=== PATIENT | male | born 1960 | race Hispanic/Latino ===

== ENCOUNTER 2019-05-29 09:45 | Inpatient (IN) | payer OTHER ==
[~2019-05-29] VITALS: Ht 167.6 cm; Wt 65.3 kg
[~2019-05-29 09:45] MED LIST: GABAPENTIN100 MG PO; GLUCOPHAGE850 MG PO; LEVOTHYROXINE50 MCG PO; MELOXICAM7.5 MG PO; PANTOPRAZOLE SO40 MG PO; SUPER B COMPLE1 EACH PO; VITAMIN D35000 UNI1 PO
--- OUTSIDE RECORDS SUMMARY | 2019-05-29 09:47 | XMS REPORT ---
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 Allergies, Adverse Reactions, Alerts This patient has no known allergies or adverse reactions. Medications This patient has no known medications. Encounters Start Date/Time End Date/Time Encounter Type Admission Type Attending [facility] Care Facility Care Department Encounter ID 2017-11-21 13:23:01 2017-11-21 13:23:01 Out[facility] [id number] 2017-10-31 06:14:00 2017-10-31 06:14:00 Outpatient [facility] [id number] 2017-10-31 00:00:00 2017-10-31 00:00:00 Outpatient [facility] [id number] 2017-10-24 09:31:26 2017-10-24 09:31:26 Outpatient [facility] [id number] 2017-10-24 00:00:00 2017-10-24 00:00:00 Outpatient [facility] [id number] 2017-10-16 15:11:10 2017-10-16 15:11:10 Outpatient [facility] [id number] 2017-10-14 12:37:33 2017-10-14 12:37:33 Outpatient [facility] [id number] 2017-10-10 08:11:27 2017-10-10 08:11:27 Outpatient [facility] [id number] 2017-10-06 07:59:33 2017-10-06 07:59:33 Outpatient [facility] [id number] 2017-09-30 09:36:24 2017-09-30 09:36:24 Outpatient [facility] [id number] 2017-09-10 09:41:45 2017-09-10 09:41:45 Outpatient [facility] [id number] 2017-09-10 08:16:43 2017-09-10 08:16:43 Outpatient [facility] [id number] 2017-08-26 10:03:30 2017-08-26 10:03:30 Outpatient [facility] [id number] 2017-08-22 09:12:12 2017-08-22 09:12:12 Outpatient [facility] [id number] 2017-08-22 07:48:32 2017-08-22 07:48:32 Outpatient [facility] [id number]
[2019-05-29] MEDS ORDERED: SODIUM CHLORIDE 0.9% 1000ML 1,000 ML IV STA (10:06)
[2019-05-29 10:34] LABS: BASOPHILS % 0.8 % (0.0-1.0); EOSINOPHILS # (AUTO) 0.1 (0.0-0.4); EOSINOPHILS % 2.1 % (0.0-6.0); HEMATOCRIT 46.3 % (38.2-49.6); HEMOGLOBIN 15.7 g/dL (14.0-18.0); LYMPHOCYTES # (AUTO) 1.3 (1.0-3.2); LYMPHOCYTES % 25.8 % (18.0-39.1); MEAN CORPUSCULAR HEMOGLOBIN 32.1 pg (28-32); MEAN CORPUSCULAR HGB CONC 33.9 g/dL (31-35); MEAN CORPUSCULAR VOLUME 94.7 fL (81-99); MONOCYTES # (AUTO) 0.4 (0.2-0.8); MONOCYTES % 8.2 % (4.4-11.3); NEUTROPHILS # (AUTO) 3.1 (2.1-6.9); NEUTROPHILS % 62.9 % (38.7-80.0); PLATELET COUNT 179 x10e3/uL (140-360); RED BLOOD COUNT 4.89 x10e6/uL (4.3-5.7); RED CELL DISTRIBUTION WIDTH 12.2 % (11.7-14.4)
[2019-05-29 10:39] LABS: BILIRUBIN,URINE NEGATIVE (NEGATIVE); CLARITY,URINE CLEAR (CLEAR); COLOR,URINE YELLOW (YELLOW); KETONES,URINE NEGATIVE (NEGATIVE); LEUKOCYTE ESTERASE ,URINE NEGATIVE (NEGATIVE); NITRITE,URINE NEGATIVE (NEGATIVE); PROTEIN,URINE DIPSTICK NEGATIVE (NEGATIVE); URINE UROBILINOGEN 0.2 mg/dL (0.2 - 1)
[2019-05-29 10:47] LABS: INR 0.86; PROTHROMBIN TIME 12.2 seconds (11.9-14.5)
[2019-05-29 10:48] LABS: PARTIAL THROMBOPLASTIN TIME 29.3 seconds (23.8-35.5)
[2019-05-29 11:08] LABS: ALANINE AMINOTRANSFERASE 503 IU/L (0-55); ALBUMIN 3.8 g/dL (3.5-5.0); ALBUMIN/GLOBULIN RATIO 1.2 (0.8-2.0); ALKALINE PHOSPHATASE 39 IU/L (40-150); ANION GAP 15.4 mmol/L (8-16); BLOOD UREA NITROGEN 15 mg/dL (7-26); BUN/CREATININE RATIO 22 (6-25); CALCIUM 9.4 mg/dL (8.4-10.2); CARBON DIOXIDE 27 mmol/L (22-29); CHLORIDE 103 mmol/L (98-107); CREATININE, SERUM 0.68 mg/dL (0.72-1.25); EST GLOMERULAR FILTRATION RATE > 60 ML/MIN (60-); GLUCOSE 226 mg/dL (74-118); LIPASE 106 U/L (8-78); POTASSIUM 4.4 mmol/L (3.5-5.1); SODIUM 141 mmol/L (136-145)
[2019-05-29 11:09] LABS: CREATINE KINASE 9347 IU/L (30-200); RBC,URINE 0-5 /HPF (0-5)
[2019-05-29 11:10] LABS: BACTERIA,URINE FEW /HPF; EPITHELIAL CELLS,URINE RARE /LPF
--- NOTE | 2019-05-29 11:27 | Diagnostic Imaging Report ---
Exam: Head CT without contrast History: Weakness Comparison studies: None Technique: Axial images were obtained from the skull base to the vertex. Coronal and sagittal images reconstructed from the axial data. Dose modulation, iterative reconstruction, and/or weight based adjustment of the mA/kV was utilized to reduce the radiation dose to as low as reasonably achievable. Radiation dose: Total DLP: 921 mGy*cm. Estimated effective dose: DLP x 0.015 Intravenous contrast: None Findings: Scalp: No abnormalities. Bones: No fractures, blastic or lytic lesions. Brain sulci: Appropriate for age. Ventricles: Normal in size and configuration. No hydrocephalus. Extra-axial spaces: No masses, no fluid collection. Parenchyma: A punctate dystrophic calcification within the right caudate nucleus, right precuneus gyrus along the right anterior parietal occipital sulcus and right inferomedial temporal lobe are without surrounding edema and are likely sequela of prior infection/inflammation. 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 Sellar/suprasellar region: No abnormalities. Craniocervical junction: Patent foramen magnum. No Chiari one malformation. Incidental findings: Atherosclerotic calcifications in the carotid siphons.. IMPRESSION: 1. No acute intracranial abnormalities. 2. Incidental a few scattered chronic intracranial dystrophic calcifications. Signed by: Dr. Krishna Davis M.D. on 05/29/2019 11:23 AM
--- NOTE | 2019-05-29 11:31 | Diagnostic Imaging Report ---
EXAMINATION: CHEST SINGLE (PORTABLE) INDICATION: Pain. COMPARISON: None FINDINGS: AP view TUBES and LINES: None. LUNGS: Lungs are not well inflated. There are bibasilar atelectasis. There is no evidence of pneumonia or pulmonary edema. PLEURA: No pleural effusion or pneumothorax. HEART AND MEDIASTINUM: The cardiomediastinal silhouette is unremarkable. BONES AND SOFT TISSUES: No acute osseous lesion. Soft tissues are unremarkable. UPPER ABDOMEN: No free air under the diaphragm. IMPRESSION: No acute thoracic abnormality. Signed by: Dr. Erik De La Vega M.D. on 05/29/2019 11:28 AM
[2019-05-29] MEDS ORDERED: ONDANSETRON HCL INJ 2MG/ML 2ML 2 MG/ML VIAL IV PRN (11:45)
[2019-05-29] MEDS ORDERED: DEXTROSE 50% SYRINGE 50 ML IV PRN (12:00)
[2019-05-29] MEDS ORDERED: FAMOTIDINE 20 MG/2 ML VIAL IV SCH (12:00)
[2019-05-29] MEDS: SODIUM CHLORIDE 0.9% 1000ML 1,000 ML IV SCH ×2 (12:05→18:25)
--- NOTE | 2019-05-29 12:10 | NUR ---
RECEIVED REPORT FROM ER. PT DX IS ELEVATED LFTs, MYOSITIS, RHABDOMYOLYSIS. VITAL SIGNS 127/71 HR 70 RR 16 AND O2 SAT 100% ON ROOM AIR. LEFT AC 18G WITH NS RUNNING AT 150/HR. IV SITE IS ASYMPTOMATIC.
[2019-05-29 13:14] LABS: FREE THYROXINE INDEX 2.3825 (1.4-3.8); THYROID STIMULATING HORMONE 2.556 uIU/mL (0.350-4.940)
[2019-05-29 13:38] VITALS: BP 113/56
[2019-05-29 15:09] VITALS: BP 113/56
[2019-05-29 16:00] VITALS: BP 109/57
[2019-05-29] MEDS: INSULIN LISPRO 100 UNIT/1 ML 3ML VIAL SQ SCH ×2 (16:30→19:49)
--- NOTE | 2019-05-29 17:37 | Consultation ---
DATE OF CONSULTATION: 05/29/2019 Nephrology consultation note REASON FOR CONSULTATION: Rhabdomyolysis. REFERRING PHYSICIAN: ER physician. HISTORY OF PRESENT ILLNESS: This is a 59-year-old gentleman with no significant past medical history, who was admitted with some weakness. His CPK level was 9000, for which Nephrology consultation was obtained for further evaluation and management. At the time of my examination, he appeared in no acute distress and denied any nausea, vomiting, chest pain, shortness of breath, cough, phlegm, fever, chills, abdominal pain, diarrhea, urinary problems, skin rash, joint pain, or any focal weakness. He did complain of some generalized weakness and fatigue in the muscle. PAST MEDICAL AND SURGICAL HISTORY: Apparently, he does have some past medical history of hypertension, diabetes mellitus, hypothyroidism, hyperlipidemia, osteoarthritis, and prostate cancer, status post prostate surgery for removal of the prostate. PERSONAL AND SOCIAL HISTORY: No history of alcohol or tobacco. MEDICATIONS: See the medication sheet that was reviewed. PHYSICAL EXAMINATION: VITAL SIGNS: Blood pressure 113/56, respirations 20, heart rate 58, and temperature 96.4. HEENT: Head was atraumatic, normocephalic. Pupils were reactive to light. Mouth; mucous membrane moist. NECK: Supple. CHEST: Revealed fair air entry. HEART: S1 and S2. ABDOMEN: Soft. Bowel sounds are positive. EXTREMITIES: No edema. RN EMERGENCY: He is awake and alert. Cranial nerves are intact. There are no gross motor deficits noted. LABORATORY DATA: His white cell count 4.8, hemoglobin 15.7, hematocrit 46.3, and platelets 179. Chemistry; sodium 141, potassium 4.4, chloride 103, CO2 of 27, BUN 15, creatinine 0.68, glucose 226, and calcium 9.4. AST 221, ALT 506, CK 9347. Albumin 3.8. Urine specific gravity less than 1.005, pH 6.5, 1+ glucose, 1+ blood, negative microscopy. IMPRESSION: 1. Rhabdomyolysis with possible myoglobinuria as evident by elevated CPK and positive blood, but no RBCs in the urine. 2. Serum creatinine is 0.68 with stable electrolytes, metabolic profile, and volume status. PLAN: Strict I's and O's. No nonsteroidal anti-inflammatory drugs, RAFAEL inhibitors, IV dye, and ARB. Check urine myoglobin, CPK in the morning. CBC comprehensive profile in the morning. Continue IV fluids at 150 mL an hour. Further recommendations to follow. Thank you for the consultation. Ally Prescott MD SA/PRIYA /[id number]
--- NOTE | 2019-05-29 18:45 | NUR ---
Received bedside report from dayshift RN. The patient is sitting by the window with his son. The patient is not in distress. The patient was instructed to urinate in the cup for collection. Verbalized understanding. Call light is on the bed, side rails. bed height low, and wheels lock.
[2019-05-29 19:14] VITALS: BP 120/70
[2019-05-29 19:22] LABS: CREATINE KINASE 7553 IU/L (30-200)
[2019-05-29 22:00] VITALS: BP 120/70
[2019-05-30] VITALS (8 sets, daily range): BP systolic 98–123; BP diastolic 56–74
--- NOTE | 2019-05-30 00:54 | History and Physical ---
CHIEF COMPLAINT: Weakness. 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 He was in his usual state until the patient feeling weak for the last few days, working outside. The patient was seen in Dr. David Colmenares's office and sent to the hospital for further treatment. No chest pain. No shortness of breath. No headache, no dizziness. No abdominal pain. No nausea or vomiting. Mild leg cramp. No backache. No burning urination. PAST MEDICAL HISTORY: 1. Diabetes mellitus. 2. Hyperlipidemia. 3. Hypothyroidism. 4. Diabetic neuropathy. 5. History of CA prostate. PAST SURGICAL HISTORY: History of prostate surgery for implant radiation. SOCIAL HISTORY: The patient is . Lives with the family. HABITS: Denies smoking or alcohol use. FAMILY HISTORY: Positive for diabetes. MEDICATIONS: List attached. REVIEW OF SYSTEMS: GENERAL: Denies fatigue or weakness. HEENT: No diplopia. No blurry vision. CARDIOPULMONARY: No chest pain. No shortness of breath. No cough. ALIMENTARY SYSTEM: No nausea. No vomiting. GENITOURINARY SYSTEM: No dysuria. No hematuria. MUSCULOSKELETAL: No joint pain. CENTRAL NERVOUS SYSTEM: No focal weakness. PHYSICAL EXAMINATION: GENERAL: This is a 59-year-old male, who is alert and oriented x3, in no acute distress. VITAL SIGNS: Temperature 98.1, pulse 64, respiratory rate 20, blood pressure 109/57. HEENT: Head is atraumatic and normocephalic. Pupils are bilaterally equal and reactive to light. Extraocular muscles are intact. NECK: Supple. No JVD. No carotid bruits. LUNGS: Clear to auscultation and percussion bilaterally. No added sounds. HEART: S1 and S2. Regular rate and rhythm. No S3, S4, or murmur. ABDOMEN: Soft and nontender. No guarding. No rigidity. EXTREMITIES: No edema. Peripheral pulse +1. HISTORICAL RECORDS ADMINISTRATOR: Grossly nonfocal. LABORATORY AND DIAGNOSTIC DATA: EKG normal sinus rhythm at 68 per minute. Chest x-ray normal. CT of the head normal. Urine is normal. CBS is normal. PT/PTT is normal. Sodium 144, potassium 4.4, BUN and creatinine normal. Carbon dioxide 27, glucose 226, AST 221, ALT 503. CK 9347. CK-MB 521. Troponin less than 0.001. Lipase 106. ASSESSMENT: 1. Acute rhabdomyolysis. 2. Diabetes mellitus. 3. Hypothyroidism. 4. Weakness secondary to #1. 5. History of CA prostate. PLAN: IV fluid, normal saline at 150 mL per hour. Renal consult with Dr. Sands. Sliding scale, blood sugar a.c. and h.s. Lab in the morning. Hold all home medicine except thyroid medicine. CBC, CMP, CPK, lipase in the morning. Leo Colmenares MD DP/MODL /[id number]
[2019-05-30] MEDS: SODIUM CHLORIDE 0.9% 1000ML 1,000 ML IV SCH ×4 (01:05→20:23)
[2019-05-30 06:18] LABS: BASOPHILS % 0.4 % (0.0-1.0); EOSINOPHILS # (AUTO) 0.2 (0.0-0.4); EOSINOPHILS % 3.4 % (0.0-6.0); HEMATOCRIT 40.4 % (38.2-49.6); HEMOGLOBIN 13.4 g/dL (14.0-18.0); LYMPHOCYTES # (AUTO) 1.4 (1.0-3.2); MEAN CORPUSCULAR HEMOGLOBIN 31.6 pg (28-32); MEAN CORPUSCULAR HGB CONC 33.2 g/dL (31-35); MEAN CORPUSCULAR VOLUME 95.3 fL (81-99); MONOCYTES # (AUTO) 0.4 (0.2-0.8); PLATELET COUNT 152 x10e3/uL (140-360); RED BLOOD COUNT 4.24 x10e6/uL (4.3-5.7); RED CELL DISTRIBUTION WIDTH 12.3 % (11.7-14.4)
[2019-05-30 06:43] LABS: ALANINE AMINOTRANSFERASE 368 IU/L (0-55); ALBUMIN 2.9 g/dL (3.5-5.0); ALBUMIN/GLOBULIN RATIO 1.3 (0.8-2.0); ALKALINE PHOSPHATASE 24 IU/L (40-150); ANION GAP 10.1 mmol/L (8-16); BLOOD UREA NITROGEN 13 mg/dL (7-26); BUN/CREATININE RATIO 23 (6-25); CALCIUM 8.7 mg/dL (8.4-10.2); CARBON DIOXIDE 26 mmol/L (22-29); CHLORIDE 111 mmol/L (98-107); CHOLESTEROL 173 MD/DL (0-199); CREATININE, SERUM 0.57 mg/dL (0.72-1.25); EST GLOMERULAR FILTRATION RATE > 60 ML/MIN (60-); GLUCOSE 141 mg/dL (74-118); HDL CHOLESTEROL 43 MG/DL (40-60); LDL CHOLESTEROL 109 MG/DL (60-130); POTASSIUM 4.1 mmol/L (3.5-5.1); SODIUM 143 mmol/L (136-145); TRIGLYCERIDES 104 MG/DL (0-149)
[2019-05-30 06:53] LABS: CREATINE KINASE 5694 IU/L (30-200)
[2019-05-30 07:25] LABS: FREE T4 (FREE THYROXINE) 0.86 ng/dL (0.8-1.8); THYROID STIMULATING HORMONE 2.746 uIU/mL (0.350-4.940)
[2019-05-30] MEDS: INSULIN LISPRO 100 UNIT/1 ML 3ML VIAL SQ SCH ×4 (07:30→20:23)
--- NOTE | 2019-05-30 07:30 | NUR ---
PT UP AMBULATING IN ROOM ,DENIES PAIN.NO DISTRESS NTOED
[2019-05-30] MEDS ORDERED: BACITRACIN ZINC 0.9GM TP SCH (09:00)
[2019-05-30] MEDS: FAMOTIDINE 20 MG/2 ML VIAL IV SCH ×2 (09:04→20:23)
--- NOTE | 2019-05-30 17:35 | NUR ---
PT UP IN CHAIR DENIES PAIN,NO DISTRESS NTOED
--- NOTE | 2019-05-30 18:45 | NUR ---
Received bedside shift report from day shift RN. The patient is laying on the bed, not in distress. Call light within reach, bed height low, wheels lock, and side rails up x2. The patient requested for new pair of non-skid socks.
[2019-05-31] VITALS (8 sets, daily range): BP systolic 104–139; BP diastolic 58–78
[2019-05-31] MEDS: SODIUM CHLORIDE 0.9% 1000ML 1,000 ML IV SCH ×3 (03:50→20:10)
[2019-05-31 06:24] LABS: BASOPHILS % 0.8 % (0.0-1.0); EOSINOPHILS # (AUTO) 0.1 (0.0-0.4); EOSINOPHILS % 2.5 % (0.0-6.0); HEMATOCRIT 42.1 % (38.2-49.6); HEMOGLOBIN 13.7 g/dL (14.0-18.0); LYMPHOCYTES # (AUTO) 1.3 (1.0-3.2); LYMPHOCYTES % 27.8 % (18.0-39.1); MEAN CORPUSCULAR HEMOGLOBIN 31.5 pg (28-32); MEAN CORPUSCULAR HGB CONC 32.5 g/dL (31-35); MEAN CORPUSCULAR VOLUME 96.8 fL (81-99); MONOCYTES # (AUTO) 0.4 (0.2-0.8); MONOCYTES % 8.2 % (4.4-11.3); NEUTROPHILS # (AUTO) 2.9 (2.1-6.9); NEUTROPHILS % 60.5 % (38.7-80.0); PLATELET COUNT 158 x10e3/uL (140-360); RED BLOOD COUNT 4.35 x10e6/uL (4.3-5.7); RED CELL DISTRIBUTION WIDTH 12.3 % (11.7-14.4)
[2019-05-31 07:00] LABS: ALANINE AMINOTRANSFERASE 396 IU/L (0-55); ALBUMIN 3.2 g/dL (3.5-5.0); ALBUMIN/GLOBULIN RATIO 1.3 (0.8-2.0); ALKALINE PHOSPHATASE 27 IU/L (40-150); ANION GAP 10.9 mmol/L (8-16); BLOOD UREA NITROGEN 9 mg/dL (7-26); BUN/CREATININE RATIO 15 (6-25); CALCIUM 9.2 mg/dL (8.4-10.2); CARBON DIOXIDE 29 mmol/L (22-29); CHLORIDE 110 mmol/L (98-107); CREATININE, SERUM 0.61 mg/dL (0.72-1.25); EST GLOMERULAR FILTRATION RATE > 60 ML/MIN (60-); GLUCOSE 141 mg/dL (74-118); POTASSIUM 4.9 mmol/L (3.5-5.1); SODIUM 145 mmol/L (136-145)
[2019-05-31 07:03] LABS: CREATINE KINASE 5851 IU/L (30-200)
--- NOTE | 2019-05-31 07:20 | NUR ---
PATIENT IS AWAKE AND IN STABLE CONDITION WITH NO S/S OF RESPIRATORY DISTRESS. PATIENT DENIES PAIN. IV FLUIDS INFUSING. TELEMETRY APPLIED. CALL LIGHT IS WITHIN REACH, PATIENT INSTRUCTED TO CALL FOR ASSISTANCE NEEDED.
[2019-05-31] MEDS: INSULIN LISPRO 100 UNIT/1 ML 3ML VIAL SQ SCH ×4 (07:30→20:22)
[2019-05-31] MEDS: FAMOTIDINE 20 MG/2 ML VIAL IV SCH ×2 (08:27→20:11)
[2019-05-31] MEDS ORDERED: GLIMEPIRIDE2 MG PO (11:06)
--- NOTE | 2019-05-31 15:14 | Diagnostic Imaging Report ---
EXAM: US ABDOMEN COMPLETE DATE: 05/31/2019 12:00 AM INDICATION: Abnormal LFTs COMPARISON: None TECHNIQUE: Transverse and longitudinal phillips scale and color doppler sonographic images of the upper abdomen were obtained. FINDINGS: There is no evidence of fluid or masses seen in the area of clinical concern in the right lower quadrant. LIVER 15.3 cm in the right midclavicular line. Increased echogenicity of the liver with normal contour, no masses. SPLEEN 10.5 cm in maximum diameter. Normal echogenicity, no masses. GALLBLADDER No gallbladder wall thickening (0.4 cm), distension, stone, or pericholecystic fluid. NEgative reported sonographic Haro's sign. BILE DUCTS No intra nor extra-hepatic biliary dilation. Common bile duct measures 0.4cm PANCREAS: Visualized portions are normal. RIGHT KIDNEY: 12.1 cm Echogenicity: Normal Collecting System: No hydronephrosis Stones: None Cyst/Mass: None LEFT KIDNEY: 11.5 cm Echogenicity: Normal Collecting System: No hydronephrosis Stones: None Cyst/Mass: None VESSELS: Aorta: Visualized portions are within normal size limits Inferior Vena Cava: Visualized portions are normal Main Portal Vein: 1.1 cm, normal size with hepatopetal flow. FREE FLUID: None IMPRESSION: Hepatic steatosis. Liver measures up the upper limits of normal for size. No cholelithiasis or sonographic evidence of cholecystitis. No renal calculi or hydronephrosis. Signed by: Sandeep Lazcano MD on 05/31/2019 3:11 PM
--- NOTE | 2019-05-31 19:25 | NUR ---
PATIENT IN STABLE CONDITION WITH NO S/S OF RESPIRATORY DISTRESS. NO PAIN VOICED. CALL LIGHT IS WITHIN REACH, PATIENT INSTRUCTED TO CALL FOR ASSISTANCE NEEDED. BEDSIDE REPORT GIVEN TO ONCOMING NURSE.
--- NOTE | 2019-05-31 19:36 | NUR ---
RECEIVED PT WALKING IN THE HALLWAY .NO ACUTE DISTRESS NOTED .CALL LIGHT WITH IN REACH .CONTINUE TO MONITOR
[2019-06-01] VITALS (7 sets, daily range): BP systolic 99–148; BP diastolic 55–75
[2019-06-01 06:21] LABS: HEMATOCRIT 42.5 % (38.2-49.6); HEMOGLOBIN 13.9 g/dL (14.0-18.0); MEAN CORPUSCULAR HEMOGLOBIN 31.7 pg (28-32); MEAN CORPUSCULAR HGB CONC 32.7 g/dL (31-35); PLATELET COUNT 154 x10e3/uL (140-360); RED BLOOD COUNT 4.38 x10e6/uL (4.3-5.7); RED CELL DISTRIBUTION WIDTH 12.4 % (11.7-14.4)
--- NOTE | 2019-06-01 06:28 | NUR ---
PT RESTING DENIES PAIN NO ACUTE DISTRESS NOTED CALL LIGHT WITH IN REACH .CONTINUE TO MONITOR
[2019-06-01 06:55] LABS: ALANINE AMINOTRANSFERASE 390 IU/L (0-55); ALBUMIN 3.2 g/dL (3.5-5.0); ALBUMIN/GLOBULIN RATIO 1.3 (0.8-2.0); ALKALINE PHOSPHATASE 28 IU/L (40-150); ANION GAP 11.3 mmol/L (8-16); BLOOD UREA NITROGEN 13 mg/dL (7-26); BUN/CREATININE RATIO 21 (6-25); CALCIUM 9.1 mg/dL (8.4-10.2); CARBON DIOXIDE 29 mmol/L (22-29); CHLORIDE 106 mmol/L (98-107); CREATININE, SERUM 0.63 mg/dL (0.72-1.25); EST GLOMERULAR FILTRATION RATE > 60 ML/MIN (60-); GLUCOSE 129 mg/dL (74-118); MAGNESIUM 2.2 MG/DL (1.3-2.1); PHOSPHORUS 4.7 MG/DL (2.3-4.7); POTASSIUM 4.3 mmol/L (3.5-5.1); SODIUM 142 mmol/L (136-145)
[2019-06-01 06:58] LABS: CREATINE KINASE 5827 IU/L (30-200)
--- NOTE | 2019-06-01 07:20 | NUR ---
PATIENT IS IN STABLE CONDITION WITH NO S/S OF RESPIRATORY DISTRESS. NO PAIN, IV FLUIDS INFUSING AND PATIENT INSTRUCTED TO CALL FOR ASSISTANCE NEEDED.
--- NOTE | 2019-06-01 07:24 | NUR ---
BEDSIDE REPORT GIVEN TO THE ONCOMING NURSE
[2019-06-01] MEDS: INSULIN LISPRO 100 UNIT/1 ML 3ML VIAL SQ SCH ×4 (07:30→20:11)
[2019-06-01] MEDS: LEVOTHYROXINE SODIUM 25 MCG TABLET PO SCH (08:45)
[2019-06-01] MEDS: FAMOTIDINE 20 MG/2 ML VIAL IV SCH ×2 (08:45→21:00)
[2019-06-01] MEDS: SODIUM CHLORIDE 0.9% 1000ML 1,000 ML IV SCH (08:45)
--- NOTE | 2019-06-01 10:08 | NUR ---
PATIENT AMBULATING IN THE HALLWAY
[2019-06-01] MEDS ORDERED: NON-FORMULARY MEDICATION (Cholecalciferol (Vitamin D3) (Vitamin D3) 1 TAB) PO SCH (11:45)
[2019-06-01] MEDS: SODIUM BICARBONATE 8.4% SYRING 150 ML in DEXTROSE 5% 1,000 ML IV SCH (14:11)
--- NOTE | 2019-06-01 14:21 | NUR ---
SPOKE WITH DR. VITALE REGARDING THE OUTPATIENT PROCEDURE FOR THE PATIENT ON 06/03/19. CALL PLACED OUT TO DR. MCKEON TO RECEIVE CLEARANCE FOR PATIENT TO HAVE HIS OUTPATIENT PROCEDURE WITH DR. Franki VITALE ON , 06/03/19- AWAITING CALLBACK.
--- NOTE | 2019-06-01 15:40 | NUR ---
PT DISCUSSED IN BARRIER ROUNDS; CK, AST, FLUIDS, MOUSSAOUI CONSULTED FOR MUSCLE WEAKNESS.
[2019-06-01] MEDS ORDERED: GABAPENTIN 300 MG CAP PO SCH (17:00)
[2019-06-01] MEDS ORDERED: GABAPENTIN 100 MG CAP PO SCH (17:00)
--- NOTE | 2019-06-01 19:31 | NUR ---
PATIENT IN STABLE CONDITION WITH NO S/S OF RESPIRATORY DISTRESS. NO PAIN VOICED. IV FLUIDS INFUSING. NEUROLOGIST GAVE CLEARANCE FOR PATIENT TO DISCHARGE TOMORROW. PATIENT IS SET TO HAVE AN OUTPATIENT COLONOSCOPY ON , 06/[address] Franki VITALE BUT MAY RESCHEDULE IT FOR A LATER DATE D/T THIS HOSPITALIZATION. CALL LIGHT IS WITHIN REACH, PATIENT INSTRUCTED TO CALL FOR ASSISTANCE NEEDED. BEDSIDE REPORT GIVEN TO ONCOMING NURSE.
--- NOTE | 2019-06-01 19:50 | NUR ---
RECEIVED PT IN RESTROOM .NO ACUTE DISTRESS NOTED .CALL LIGHT WITH IN REACH .CONTINUE TO MONITOR
[2019-06-02] VITALS: BP 100/55
[2019-06-02 04:00] VITALS: BP_SYST 119; BP_SYST 162; BP_DIAS 61; BP_DIAS 69
[2019-06-02] MEDS: SODIUM BICARBONATE 8.4% SYRING 150 ML in DEXTROSE 5% 1,000 ML IV SCH (05:57)
[2019-06-02 06:01] LABS: BILIRUBIN,URINE NEGATIVE (NEGATIVE); CLARITY,URINE CLEAR (CLEAR); COLOR,URINE YELLOW (YELLOW); KETONES,URINE NEGATIVE (NEGATIVE); LEUKOCYTE ESTERASE ,URINE NEGATIVE (NEGATIVE); NITRITE,URINE NEGATIVE (NEGATIVE); PROTEIN,URINE DIPSTICK NEGATIVE (NEGATIVE); URINE UROBILINOGEN 0.2 mg/dL (0.2 - 1)
[2019-06-02 06:41] LABS: ALANINE AMINOTRANSFERASE 412 IU/L (0-55); ALBUMIN 3.3 g/dL (3.5-5.0); ALBUMIN/GLOBULIN RATIO 1.3 (0.8-2.0); ALKALINE PHOSPHATASE 31 IU/L (40-150); ANION GAP 12.2 mmol/L (8-16); BLOOD UREA NITROGEN 13 mg/dL (7-26); BUN/CREATININE RATIO 19 (6-25); CALCIUM 9.4 mg/dL (8.4-10.2); CARBON DIOXIDE 33 mmol/L (22-29); CHLORIDE 100 mmol/L (98-107); CREATININE, SERUM 0.68 mg/dL (0.72-1.25); EST GLOMERULAR FILTRATION RATE > 60 ML/MIN (60-); GLUCOSE 155 mg/dL (74-118); POTASSIUM 4.2 mmol/L (3.5-5.1); SODIUM 141 mmol/L (136-145)
[2019-06-02 06:42] LABS: CREATINE KINASE 7062 IU/L (30-200)
[2019-06-02 06:52] LABS: BACTERIA,URINE FEW /HPF; EPITHELIAL CELLS,URINE FEW /LPF; WBC,URINE (MAN) 0-5 /HPF (0-5)
--- NOTE | 2019-06-02 07:23 | NUR ---
PT RESTED DURING THE NIGHT DENIES PAIN .CALL LIGHT WITH IN REACH .CONTINUE TO MONITOR REPORT GIVEN TO THE ONCOMING NURSE
[2019-06-02 07:30] VITALS: BP 104/60
[2019-06-02] MEDS ORDERED: PANTOPRAZOLE SOD 40 MG TABEC PO SCH (07:30)
[2019-06-02] MEDS ORDERED: GLIMEPIRIDE 2 MG TAB PO SCH (08:00)
[2019-06-02 08:26] VITALS: BP 104/60
[2019-06-02] MEDS: FAMOTIDINE 20 MG/2 ML VIAL IV SCH (08:29)
[2019-06-02] MEDS: LEVOTHYROXINE SODIUM 25 MCG TABLET PO SCH (08:29)
[2019-06-02] MEDS ORDERED: CHOLECALCIFEROL 1,000 UNIT TAB PO SCH (09:00)
[2019-06-02] MEDS ORDERED: MELOXICAM 7.5 MG TAB PO SCH (09:00)
[2019-06-02] MEDS ORDERED: B COMPLEX WITH VITAMIN C PO SCH (09:00)
[2019-06-02] MEDS ORDERED: ONDANSETRON HCL 4 MG ORAL DISINTEGRATING TAB PO PRN (12:00)
[2019-06-02 12:03] VITALS: BP 122/66
--- NOTE | 2019-06-02 13:33 | NUR ---
SPOKE WITH DR BEAULIEU NEUROLOGY ,OK FOR PT TO GO HOME
--- NOTE | 2019-06-02 14:45 | NUR ---
PT DISCHARGED HOME ,IV DCD WITHOUT REDNES OR SWELLING,INSTRUCTIONS GIVEN COPY ON CHART.
[2019-06-02] MEDS ORDERED: FAMOTIDINE 20 MG TAB PO SCH (21:00)
--- NOTE | 2019-06-03 12:53 | Discharge Summary ---
Discharge summary consultation by Dr. Genie Canales, model and dye person. Dr. Genie Rothman, neurologist. Dr. Yared Gold, crisis manager. FINAL DIAGNOSIS: Acute idiopathic rhabdomyolysis. OTHER DIAGNOSES: 1. Dehydration. 2. Proximal muscle weakness. 3. Diabetes mellitus type 2. 4. Hypertension. 5. Hyperlipidemia. 6. Hypothyroidism. 7. Diabetic neuropathy. 8. Carcinoma of the prostate by history. 9. Hepatic steatosis on ultrasound. BRIEF HOSPITAL COURSE: 59-year-old male, who was admitted by Dr. Mg Colmenares. The patient's PCP is Dr. David Colmenares. The patient was sent to the ER from office of Dr. David Colmenares for complaints of generalized weakness. The patient told that he was working outside. 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 The patient was mostly driving in around [facility]. He was feeling gradual weakness with difficulty elevating his arms and standing up from squatting position as per his statement. The patient was found having elevated creatinine kinase level of more than 9000 at presentation. His renal function did not show any abnormalities. The patient was started on IV fluid. Dr. Sands, model and dye person was consulted. The patient was also found of having elevated liver enzymes. He denied any alcohol intake. Neurology consult was requested, Dr. Romero, she was on vacation. Dr. Genie Rothman was covering. He evaluated the patient. For abnormal LFTs, Dr. Yared Gold was consulted. Dr. Gold evaluated the patient as an outpatient. The patient was scheduled for a colonoscopy and EGD as an outpatient as per his statement. Dr. Gold evaluated the patient, did not recommend a need for further workup. The patient had an ultrasound of the abdomen, which showed fatty liver. The patient was tolerating food well. He had also PT/OT. The patient's creatine kinase level was remaining high. His liver enzyme level was remaining high. Acute viral hepatitis profile was negative. CMV virus antibody is still pending. The patient's symptoms with abnormal liver enzymes and creatine kinase were suggestive for viral syndrome. He verbalized understanding. I talked with the patient's son over phone by interpretation. The patient only speaks Azeri, he wanted to go home. the patient was advised to continue plenty fluid intake by mouth. He was also advised to follow with model and dye person and crisis manager, and neurologist as available. The patient was otherwise uneventful during this hospital stay. He was hemodynamically stable at discharge. PHYSICAL EXAMINATION: VITAL SIGNS: Today, BP 122/66, pulse 64, temperature 97.4, respirations 18, and SpO2 of 98%. GENERAL: He is alert, not in acute distress. HEENT: NC/AT. No pallor. No icterus. Oral mucosa is moist. NECK: No JVD. No carotid bruit. No lymphadenopathy. No thyromegaly. HEART: S1 and S2, regular. No murmur. LUNGS: Clear to auscultation. ABDOMEN: Soft and nontender. No palpable masses. Bowel sounds active in all quadrants. EXTREMITIES: No edema, cyanosis, or clubbing. NEUROLOGIC: Proximal muscle weakness on both upper extremities and lower extremities. sensation intact. No focal deficit noted. LABORATORY DATA: CBC; WBC 5.18, hemoglobin 13, hematocrit 42, platelets 154, MCV 97, RDW 12, neutrophils 60, and lymphocytes 27. PT 12.2, INR 0.86, PTT 29.3. Chemistry panel; sodium 141, potassium 4.2, chloride 100, CO2 of 43, anion gap 8. BUN 13, creatinine 0.68, and glucose 155. Hemoglobin A1c 6.8, calcium 9.4, phosphorus 4.7, magnesium 2.2, total bilirubin 0.7, AST 169, ALT 412, . Troponin I 0.001. BNP less than 10. Total protein 5.8, albumin 3.3, globulin 2.5. 89.5, lipase 106 at presentation came down to 35. Total cholesterol 173, triglycerides 104, less than 10. CRUZ screening is negative. Acute hepatitis viral profile is negative. CMV, IgG antibody is pending. Urinalysis is negative for protein, glucose 1+ at presentation, nitrite negative, leukocyte estrace negative, wbc . MICROBIOLOGICAL DATA: Urine cultures no growth. RADIOLOGICAL DATA: CT head and brain without contrast at presentation, no acute intracranial abnormalities. Few scattered chronic intracranial dystrophic calcification. Chest x-ray single view, no acute CT abnormality. Abdominal ultrasound, hepatic steatosis, sonographic evidence of cholecystitis, hydronephrosis. MEDICATIONS ON DISCHARGE: Please refer to the med reconciliation sheet. The patient was advised to avoid statin. He was not taking statin recently as per his statement. DIET: 2000 calorie 2g sodium low cholesterol diet. ACTIVITY: As tolerated. Avoid stressful physical activity from now. INSTRUCTIONS ON DISCHARGE: Continue medication as per discharge recommendation. Continue plenty of fluid intake by mouth. Follow up with model and dye person, neurologist, and crisis manager, as available. Follow up with PCP, Dr. David Colmenares in 1 week. Repeat CBC and CMP in 5 days, repeat creatine kinase in 5 days. MD ASUNCION Mike/PRIYA /[id number]
--- NOTE | 2019-06-03 14:18 | Consultation ---
DATE OF CONSULTATION: 05/31/2019 REFERRING PHYSICIAN: Dr. Hebert. HISTORY OF PRESENT ILLNESS: This is a 59-year-old male with history of diabetes and hypothyroidism, who is only [place] speaking and as such, most of the history was from the records and the chart, and through the nursing staff. The patient was admitted yesterday with elevated CK level, which has went down in half since the admission. He was noted also to have high liver function test and generalized weakness was noted proximally may be and as such Neurology consultation for myopathy was ordered. The patient has no history of unusual rash. He is icteric however. No nausea or vomiting. Denies any unusual joint pain, diarrhea, or abdominal pain. PAST MEDICAL HISTORY: Includes, diabetes, hypertension, hypothyroidism, hyperlipidemia, osteoarthritis, and prostate cancer. SOCIAL HISTORY: No alcohol or drug abuse. MEDICATIONS: Please refer the list. REVIEW OF SYSTEMS: Attempted 14-points unobtainable because of language barrier. PHYSICAL EXAMINATION: VITAL SIGNS: Temperature 98, respiratory rate 16, pulse 80, blood pressure 113/56. HEAD AND NECK: Icteric eyes. Neck is supple. HEART: Normal heart sounds. LUNGS: Good air entry. ABDOMEN: Soft. EXTREMITIES: No significant edema. NEUROLOGIC: Alert follows commands. Cranial nerve examination grossly is normal. He has proximal weakness may be in the upper deltoid around 4/5. Sensory was difficult to obtain, but no sensory level, however, he has decreased vibration, proprioception distally. Romberg was positive. Deep tendon reflexes were trace. Planters were flexor. LABORATORY DATA: As mentioned show elevated liver function. CK was 9347, went down to 5222. Electrolytes are normal. He had high white cell count originally, which is normal now. The patient had a head CT when he came in, which shows no acute abnormalities. He has intracranial dystrophic calcifications, which are probably related to chronic infections. ASSESSMENT AND PLAN: The patient is improving in my office, he is most likely related to an infectious etiology, specifically viral, it seems to be improving. It is all likely that his increased CK is secondary to disuse considering that the patient has been active lately. Overall, his condition is improving. He needs hydration and close followup of his CK, basic labs , and infectious etiologies have been ordered. He needs physical and occupational therapy if no improvement, then he will need an EMG as well as muscle biopsy if no other definite diagnosis can be made through other means. We will follow. Genie Rothman MD AM/PRIYA /[id number]
--- NOTE | 2019-06-03 14:43 | Progress Note ---
DATE: 06/01/2019 SUBJECTIVE: The patient is . Proximal weakness still persist. His is going. MEDICATIONS: Per list. OBJECTIVE: EYES: Icteric. LUNGS: Good air entry. ABDOMEN: Soft. NEUROLOGIC: Normal cranial nerve examination. MENTAL STATUS: He speaks Yoruba only. Proximal weakness. Sensory, with no sensory level. ASSESSMENT: Myopathy, probably related to infectious myositis, probably viral. Recommend hydration and management and follow with creatine kinase. If symptoms persist, then further workup will be done as an outpatient. Genie Rothman MD AM/MODL /[id number]
[2019-07-26] MEDS ORDERED: PREDNISONE5 MG PO (14:20)
== END 2019-06-02 14:45 | disposition home or self-care (01) | DRG 558 ==
LOC: ER 09:45 → ERHOLD 11:54 → MED/SURG3 12:51
PROVIDERS: ADMIT Internal Medicine; ATTEND Internal Medicine
DX: M62.82 Rhabdomyolysis (principal); R82.1 Myoglobinuria; M60.09 Infective myositis, multiple sites; M60.9 Myositis, unspecified; R79.89 Other specified abnormal findings of blood chemistry; I10 Essential (primary) hypertension; E03.9 Hypothyroidism, unspecified; E78.5 Hyperlipidemia, unspecified; Z85.46 Personal history of malignant neoplasm of prostate; E11.65 Type 2 diabetes mellitus with hyperglycemia; E11.42 Type 2 diabetes mellitus with diabetic polyneuropathy; Z83.3 Family history of diabetes mellitus; B97.89 Other viral agents as the cause of diseases classified elsewhere; E86.0 Dehydration; K76.0 Fatty (change of) liver, not elsewhere classified; Z79.84 Long term (current) use of oral hypoglycemic drugs
CPT/HCPCS: 36415; 70450; 71045; 76700; 80053; 80061; 81001; 82085; 82550; 82552; 82553; 82948; 83036; 83615; 83690; 83735; 83874; 83880; 84100; 84436; 84439; 84443; 84479; 84481; 84484; 85007; 85025; 85027; 85610; 85651; 85730; 86039; 86140; 86431; 86644; 86645; 87086; 93005; 99284; J7030; J7070

== ENCOUNTER → 2019-07-13 | Outpatient (CLI) | payer OTHER ==
[~2019-07-13] MED LIST changes: +GLIMEPIRIDE2 MG PO; +IOPAMIDOL 370 MG/ML 200 ML INFUS..BTL INJ ONE; +PREDNISONE5 MG PO; +SODIUM CHLORIDE 0.9% 50ML 50 ML ONE
[2019-07-13 08:03] LABS: BLOOD UREA NITROGEN 16 mg/dL (7-26); BUN/CREATININE RATIO 26 (6-25); CREATININE, SERUM 0.62 mg/dL (0.72-1.25); EST GLOMERULAR FILTRATION RATE > 60 ML/MIN (60-)
--- NOTE | 2019-07-13 09:44 | Diagnostic Imaging Report ---
CT of the chest, abdomen and pelvis, with contrast. History: Weight loss. Comparison: Abdominal ultrasound from 05/31/2019. Technique: Multidetector CT scanning of the abdomen and pelvis was performed from the level of the lung apices to the inferior pubic rami after intravenous administration of contrast. Coronal and sagittal multiplanar reformations were obtained. RADIATION DOSE: Total DLP: 461.59 mGy*cm Dose modulation, iterative reconstruction, and/or weight based adjustment of the mA/kV was utilized to reduce the radiation dose to as low as reasonably achievable. Findings: The visualized structures within the base of the neck demonstrate no significant abnormalities. The thoracic aorta is normal course and caliber. The heart is not enlarged. There is no abnormal pericardial fluid present. There is no abnormal axillary, mediastinal, or hilar lymph node enlargement. The trachea and proximal airways are patent. Examination of the lungs demonstrate no evidence for consolidation, pneumothorax, mass, suspicious nodule, or pleural effusion. The liver is at the upper limits normal for size. The liver appears mildly decreased in attenuation which can be seen in the setting of mild hepatic steatosis. A subcentimeter hypodensity is identified within the left hepatic lobe which is too small to definitively characterize. No other focal hepatic abnormalities are identified. The gallbladder is unremarkable. There is no biliary ductal dilatation. The stomach, spleen, pancreas, and bilateral adrenal glands are unremarkable. The kidneys are normal in size and location and concentrate contrast material properly. A 1.2 cm simple cyst is identified within the inferior pole the right kidney. An additional subcentimeter hypodensity is identified within the superior pole the left kidney which is too small to definitively characterize but likely represents a cyst. There is no evidence for hydronephrosis. The ureters are normal course and caliber. The urinary bladder is unremarkable. Multiple radiopaque opacities identified at the level of the prostate likely reflecting brachytherapy seeds. The abdominal aorta is normal course and caliber with mild left sclerotic calcifications. The IVC is unremarkable. Please note evaluation the bowel is limited without the use of enteric contrast material. The visualized small and large bowel demonstrate no evidence of obstruction or inflammation. Scattered diverticula are noted within the colon without evidence for acute diverticulitis. There is no ascites or intraperitoneal free air. No abnormally enlarged lymph nodes are identified within the abdomen or pelvis. There is a fat-containing right inguinal hernia present. The osseous structures demonstrate no evidence for acute fracture or destructive process. The extraperitoneal soft tissues are unremarkable. IMPRESSION: In this patient with history of prostate cancer, there is no evidence for metastatic disease within the chest, abdomen, or pelvis. Signed by: Dr. Matthew Bell MD on 07/13/2019 9:40 AM
== END ==
LOC: CT 07:16
PROVIDERS: ATTEND Internal Medicine
DX: B17.9 Acute viral hepatitis, unspecified (principal); R63.4 Abnormal weight loss
CPT/HCPCS: 36415; 71260; 74177; 82565; 84520; Q9967

== ENCOUNTER → 2019-07-28 | Day surgery (SDC) | payer OTHER ==
[~2019-07-28] MED LIST changes: +FENTANYL CITRATE/PF 100MCG/2 ML INJ ONE; +HYOSCYAMINE 0.125 MG TAB ONE; -IOPAMIDOL 370 MG/ML 200 ML INFUS..BTL INJ ONE; +MIDAZOLAM HCL 2 MG/2 ML VIAL ONE; +PROPOFOL IV EMULSION 10 MG/ML 50 ML VIAL ONE; -SODIUM CHLORIDE 0.9% 50ML 50 ML ONE
[2019-07-28 11:05] VITALS: BP 131/82
--- NOTE | 2019-07-28 11:45 | Operative Report ---
DATE OF PROCEDURE: 07/28/2019 SURGEON: Yared Gold MD PROCEDURES: An EGD with esophageal dilatation and biopsies and esophageal brushings and a colonoscopy with polypectomy and biopsies. INDICATIONS FOR EGD: Dysphagia, heartburn, and indigestion. INDICATIONS FOR COLONOSCOPY: Surveillance colonoscopy, personal history of colon polyps, diarrhea. MEDICATIONS: The patient was done under MAC, please see anesthesiologist's note. PROCEDURE IN DETAIL: With the patient in left lateral decubitus position, flexible fiberoptic Olympus gastroscope was introduced into the esophagus under direct visualization without any difficulty. There were some scattered whitish plaques noted in the distal esophagus and brushings were obtained to rule out Li. The esophagus was dilated to size 52-Tajik Buck. The scope was then advanced with ease into the stomach. Mucosa overlying the antrum and the body revealed some patchy erythema, low-grade to moderate edema. Biopsies were obtained and sent to stain for H pylori. Pylorus was of normal contour and shape, it was intubated with ease and the scope was advanced all the way to the second portion of the duodenum. Biopsies were obtained from the second portion and the duodenal bulb to rule out sprue. The scope was then withdrawn back into the stomach and retroflexed and mucosa overlying the fundus and cardia appeared to be within normal limits. The scope was then straightened out, it was subsequently withdrawn. The patient tolerated procedure well. IMPRESSION: 1. Rule out Li esophagitis. 2. Esophagus dilated to size 52-Tajik Buck. 3. Gastritis, biopsied. Biopsies sent to stain for Helicobacter pylori. 4. Rule out sprue. PLAN: Follow up histology. Increase Protonix to 40 mg one p.o. a.c. b.i.d. PROCEDURE IN DETAIL: The patient was then turned around after adequate lubrication of the anal canal. A flexible fiberoptic Olympus colonoscope was inserted into the rectum with ease and advanced all the way to the cecum. Mucosa overlying the cecum appeared to be within normal limits. The ileocecal valve was intubated and the scope was advanced into the terminal ileum. Biopsies were obtained. The scope was then withdrawn back into the colon. It was then withdrawn slowly. Mucosa overlying the ascending and the transverse appeared to be within normal limits. There was some mild patchy inflammatory changes noted in the left colon and the rectum. Random biopsies were obtained. Some diverticular disease was noted in the sigmoid colon. Approximately 6 mm sessile polyp was removed per cold snare polypectomy from the sigmoid colon. The scope was then retroflexed into the distal rectum and small internal hemorrhoids were noted, none of which was actively bleeding. The scope was then straightened out, it was subsequently withdrawn after securing an adequate stool specimen that was sent for the appropriate stool studies. The patient then tolerated the procedure well. IMPRESSION: 1. Mild patchy left-sided colitis. 2. Sigmoid colon polyp, removed per cold snare polypectomy. 3. Diverticulosis. 4. Proctitis, mild. 5. Internal hemorrhoids, none actively bleeding. PLAN: Follow up histology. Follow up stool studies. Initiate Bentyl 10 mg one p.o. t.i.d. Visbiome one p.o. b.i.d. The patient might benefit from a followup colonoscopy in 5 years. Yared Gold MD [facility] [place] /[id number] cc: Dr. Haroldo Colmenares
[2019-07-28 11:46] LABS: WBC,FECAL (FECAL LACTOFERRIN) POSITIVE (NEGATIVE)
[2019-07-28 15:03] LABS: C DIFFICILE TOXIN A&B AMP PROB NEGATIVE (NEGATIVE)
== END | disposition home or self-care (01) ==
LOC: OR 07:22
PROVIDERS: ATTEND Internal Medicine Gastroenterology
DX: K29.70 Gastritis, unspecified, without bleeding (principal); D12.5 Benign neoplasm of sigmoid colon; K51.50 Left sided colitis without complications; K22.8 Other specified diseases of esophagus; R13.10 Dysphagia, unspecified; K21.9 Gastro-esophageal reflux disease without esophagitis; K57.30 Diverticulosis of large intestine without perforation or abscess without bleeding; K62.89 Other specified diseases of anus and rectum; K64.8 Other hemorrhoids; K76.0 Fatty (change of) liver, not elsewhere classified; E11.9 Type 2 diabetes mellitus without complications; E03.9 Hypothyroidism, unspecified; Z01.810 Encounter for preprocedural cardiovascular examination; Z79.84 Long term (current) use of oral hypoglycemic drugs
CPT/HCPCS: 36415; 43239; 43450; 45380; 45385; 82948; 83630; 83993; 87045; 87177; 87328; 87493; 93005; J2250; J2704; J3010; 43235; 45378

== ENCOUNTER → 2019-08-09 | Outpatient (CLI) | payer OTHER ==
[~2019-08-09] MED LIST changes: -FENTANYL CITRATE/PF 100MCG/2 ML INJ ONE; -HYOSCYAMINE 0.125 MG TAB ONE; -MIDAZOLAM HCL 2 MG/2 ML VIAL ONE; -PROPOFOL IV EMULSION 10 MG/ML 50 ML VIAL ONE
--- NOTE | 2019-08-09 15:52 | Diagnostic Imaging Report ---
Bone Scan, delayed phase INDICATION: R74.8 Abnormal levels of other serum enzymes. Unintentional weight loss of 40 pounds in 4 months. History of prostate cancer in 2013. COMPARISON: CT CAP 07/13/2019 REPORT: Approximately 3 hours following intravenous administration of 27.3 mCi of Tc-99m MDP, delayed total body images in the anterior and posterior projections and selected spot images were obtained. Distribution of tracer activity is unremarkable throughout the skeletal system. No abnormal accumulation of tracer is seen in the soft tissues or urinary tract. IMPRESSION: No scan evidence of metastatic bone disease. Signed by: Dr. Keiko Eid M.D. on 08/09/2019 3:49 PM
== END ==
LOC: NM 09:39
PROVIDERS: ATTEND Internal Medicine
DX: R74.8 Abnormal levels of other serum enzymes (principal)
CPT/HCPCS: 78306; A9503